=== PATIENT | female | born 2000 | race Caucasian/White ===

== ENCOUNTER 2024-11-07 03:31 | Emergency (ER) | payer SELFPAY ==
[2024-11-07] MEDS: Acetaminophen 325 MG Tab PO ONE (04:40)
[2024-11-07] MEDS: Dexamethasone 6 MG TABLET PO ONE (04:40)
[2024-11-07] MEDS: Dexamethasone 4 MG Tab PO ONE (04:40)
== END 2024-11-07 06:10 | disposition home or self-care (01) ==
LOC: JD.ED 03:31
DX: B34.9 Viral infection, unspecified (principal); J45.909 Unspecified asthma, uncomplicated; Z90.49 Acquired absence of other specified parts of digestive tract; Z88.0 Allergy status to penicillin
CPT/HCPCS: 87428; 99284; A9270; J8540